=== PATIENT | male | born 1985 | race Caucasian/White ===

== ENCOUNTER 2017-12-15 18:19 | Emergency (ER) | payer MEDICAID ==
[2017-12-15] MEDS: IBUPROFEN 600 MG TAB PO (18:50)
[2017-12-15] MEDS: HYDROCODONE/APAP (5/325) TAB PO (18:50)
== END 2017-12-15 20:22 | disposition home or self-care (01) ==
LOC: FTE 18:19
DX: S93.505A Unspecified sprain of left lesser toe(s), initial encounter (principal); F17.210 Nicotine dependence, cigarettes, uncomplicated; W22.8XXA Striking against or struck by other objects, initial encounter; Y92.9 Unspecified place or not applicable
CPT/HCPCS: 73630; 73630-LT; 99283-25

== ENCOUNTER 2019-06-04 14:21 | Emergency (ER) | payer MEDICAID ==
[2019-06-04] MEDS: HYDROCODONE/APAP (5/325) TAB PO (14:46)
[2019-06-04] MEDS: ONDANSETRON (ODT) 4 MG TAB ODT (14:46)
[2019-06-04] MEDS: LIDOCAINE 1% (MPF) 5 ML VIAL INJ (14:46)
[2019-06-04] MEDS: CEFTRIAXONE 1 GM INJ IM (14:46)
== END 2019-06-04 14:58 | disposition home or self-care (01) ==
LOC: FTE 14:58
DX: L03.115 Cellulitis of right lower limb (principal); F17.210 Nicotine dependence, cigarettes, uncomplicated
CPT/HCPCS: 96372; 99284-25